=== PATIENT | male | born 1985 | race Hispanic/Latino ===

== ENCOUNTER 2017-06-12 00:28 | Emergency (ER) | payer SELFPAY ==
[2017-06-12] MEDS ORDERED: Ketorolac Tromethamine 60 MG/2 ML VIAL ONE (02:25)
--- NOTE | 2017-06-12 09:16 | RAD ---
LEFT ANKLE 3 VIEWS: HISTORY: Left ankle injury. FINDINGS: Ankle mortise is intact. Mild soft tissue swelling overlies the lateral malleolus. No acute fractur e or dislocation. IMPRESSION: Soft tissue swelling. No acute osseous abnormalities are demonstrated. POS: SHRUTHI
== END 2017-06-12 02:55 | disposition home or self-care (01) ==
LOC: ERS 00:28
DX: M25.572 Pain in left ankle and joints of left foot (principal); W10.9XXA Fall (on) (from) unspecified stairs and steps, initial encounter
CPT/HCPCS: 96372; J1885